=== PATIENT | male | born 1960 | race Caucasian/White ===

== ENCOUNTER 2017-12-05 11:05 | Day surgery (SDC) | payer OTHER ==
[~2017-12-05 11:05] MED LIST: CIPRO500 MG PO; INTESTINEX1 CA1 PO; Levsin/Sl 0.125 MG TAB.SUBL SL; OXYC1TAB9 PO; Protonix PO
== END 2017-12-05 11:17 | disposition home or self-care (01) ==
LOC: AMB-ENDOS 11:05
DX: D12.5 Benign neoplasm of sigmoid colon (principal); K64.8 Other hemorrhoids

== ENCOUNTER 2018-11-29 05:50 | Day surgery (SDC) | payer OTHER ==
[2018-11-29] MEDS ORDERED: PERCOCET 5-3251 EACH PO (10:33)
[2018-11-29] MEDS ORDERED: DEXILANT60 MG PO (10:33)
[2018-11-29] MEDS ORDERED: ZOFRAN4 MG PO (10:34)
== END 2018-11-29 14:05 | disposition home or self-care (01) ==
LOC: CIR.AMB 05:50 → SURG 08:30 → EDSTATUS 08:30 → CIR.AMB 12:30
DX: K80.10 Calculus of gallbladder with chronic cholecystitis without obstruction (principal)

== ENCOUNTER 2019-04-20 08:55 | Emergency (ER) | payer OTHER ==
[~2019-04-20] VITALS: Ht 167.6 cm; Wt 75.3 kg
[~2019-04-20 08:55] MED LIST changes: +DEXILANT60 MG PO; +PERCOCET 5-3251 EACH PO; +ZOFRAN4 MG PO
== END 2019-04-20 14:47 | disposition home or self-care (01) ==
LOC: ER 08:55
DX: K52.89 Other specified noninfective gastroenteritis and colitis (principal)

== ENCOUNTER 2020-10-02 10:08 | Emergency (ER) | payer OTHER ==
[~2020-10-02] VITALS: Ht 167.6 cm; Wt 71.7 kg
[2020-10-02] MEDS ORDERED: ZOFRAN8 MG PO (17:35)
[2020-10-02] MEDS ORDERED: PEPCID AC20 MG PO (17:35)
== END 2020-10-02 17:56 | disposition home or self-care (01) ==
LOC: ER 10:08
DX: R10.9 Unspecified abdominal pain (principal)

== ENCOUNTER 2025-02-18 20:31 | Emergency (ER) | payer OTHER ==
[~2025-02-18] VITALS: Ht 172.7 cm; Wt 77.1 kg
[~2025-02-18 20:31] MED LIST changes: +PEPCID AC20 MG PO; +ZOFRAN8 MG PO
[2025-02-18 23:51] LABS: BASO % 0.6 % (0.1-1.2); EOS # 0.18 (0.04-0.54); EOS % 2.5 % (0.7-7.0); LYMPH # 2.94 (1.18-3.74); LYMPH % 40.7 % (19.3-53.1); MEAN PLATELET VOLUME 9.70 fl (9.4-12.4); MONO # 0.68 (0.24-0.82); MONO % 9.4 % (4.7-12.5); NEUT # 3.37 (1.56-6.13); NEUT % 46.7 % (34.0-71.1); RED CELL DISTRIBUTION WIDTH 12.3 % (11.6-14.4)
[2025-02-18 23:57] LABS: ERYTHROCYTE SEDIMENTATION RATE 7 mm/hr (0-20)
[2025-02-19 00:04] LABS: INR 0.99
[2025-02-19 00:09] LABS: ALT/SGPT 31 U/L (12-78); AST/SGOT 30 U/L (15-37); BILIRUBIN TOTAL 0.36 mg/dL (0.3-1.2); BUN CREA RATIO 18 (7.0-25.0); CREATININE SERUM 1.10 mg/dL (0.70-1.30); GFR 67.83; GLOBULINA 3.4 G/DL (2.4-3.5); GLUCOSE FASTING 100 mg/dL (65-100); OSMOLALITY SERUM 286 MOSM/KG (275-295)
[2025-02-19 00:21] LABS: URINE APPEARANCE Clear; URINE BILIRRUBIN Negative (NEGATIVE); URINE BLOOD Negative; URINE COLOR Yellow; URINE GLUCOSE Negative (NEGATIVE); URINE KETONE Negative (NEGATIVE); URINE LEUKOCYTE Negative; URINE NITRATE Negative; URINE PROTEIN Negative (NEGATIVE); URINE UROBILINOGEN 0.2 E.U./dl
[2025-02-19 00:25] LABS: URINE RBC 3.1 uL (0.0-20.8)
[2025-02-19 00:28] LABS: URINE BACTERIA 1.1 uL (0.0-1933); URINE CAST 0.00 uL (0.0-1.40); URINE EPITHELIAL CELLS 0.1 uL (0.0-38.8); URINE WBC 1.5 uL (0.0-23.2)
[2025-02-19] MEDS ORDERED: DEXAMETHASONE SODIUM PHOSPHATE 4 MG/ML VIAL IM STA (00:46)
[2025-02-19] MEDS ORDERED: MEDROLPACK PO (00:49)
[2025-02-19] MEDS ORDERED: DEXAMETHASONE SODIUM PHOSPHATE 4 MG/ML VIAL ONE (01:20)
[2025-02-19 01:31] VITALS: BP 150/80; O2SAT 96
== END 2025-02-19 01:33 | disposition home or self-care (01) ==
LOC: ER 20:31
PROVIDERS: Physician Assistant Medical
DX: H02.401 Unspecified ptosis of right eyelid (principal); Z85.46 Personal history of malignant neoplasm of prostate